=== PATIENT | female | born 1945 | race Caucasian/White ===

== ENCOUNTER 2017-05-21 09:32 | Observation (INO) | payer OTHER ==
[2017-05-21] MEDS ORDERED: PHENAZOPYRIDINE HCL 100 MG TAB PO ONE (11:49)
[2017-05-21] MEDS ORDERED: ceFAZolin 2 GM/DEXTROSE 100 ML IV ONE (11:49)
[2017-05-21] MEDS ORDERED: LR 1,000 ML IV ONE (11:50)
[2017-05-21] MEDS ORDERED: LIDOCAINE 1% 2 ML INJ ID PRN (11:50)
[2017-05-21] MEDS ORDERED: PHENAZOPYRIDINE HCL 200 MG TAB PO ONE (12:15)
[2017-05-21] MEDS ORDERED: BUPIVACAINE/EPI 0.5% 30 ML SDV ONE (12:30)
[2017-05-21] MEDS ORDERED: LIDOCAINE 2% 5 ML SDV ONE (13:16)
[2017-05-21] MEDS ORDERED: ROCURONIUM 50 MG/5 ML VIAL ONE ×2 (13:16→13:59)
[2017-05-21] MEDS ORDERED: KETOROLAC 30 MG/1 ML SDV ONE (13:16)
[2017-05-21] MEDS ORDERED: RANITIDINE 50 MG/2 ML VIAL ONE (13:16)
[2017-05-21] MEDS ORDERED: SUGAMMADEX SODIUM 200 MG/2 ML VIAL IVP ONE (13:16)
[2017-05-21] MEDS ORDERED: ONDANSETRON 4 MG/2 ML VIAL ONE (13:16)
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
[2017-05-21] MEDS ORDERED: PROPOFOL 200 MG/20 ML VIAL ONE (13:59)
[2017-05-21] MEDS ORDERED: PROPOFOL/EMULSION 500 MG/50 ML BOTTLE IV ONE (14:01)
[2017-05-21] MEDS ORDERED: fentaNYL 100 MCG/2 ML INJ ONE ×3 (14:01→15:40)
[2017-05-21] MEDS ORDERED: MIDAZOLAM 2 MG/2 ML VIAL ONE (14:01)
[2017-05-21] MEDS ORDERED: ONDANSETRON 4 MG/2 ML VIAL IVP PRN ×2 (14:46→15:26)
[2017-05-21] MEDS ORDERED: MEPERIDINE 25 MG/ML SYR IVP PRN (14:46)
[2017-05-21] MEDS ORDERED: ALBUTEROL 3 ML DEYVIAL IH PRN (14:46)
[2017-05-21] MEDS ORDERED: NALOXONE HCL 0.4 MG/ML INJ IVP PRN (14:46)
[2017-05-21] MEDS ORDERED: LR 500 ML IV PRN (14:46)
[2017-05-21] MEDS ORDERED: DEXAMETHASONE 4 MG/ML VIAL IVP PRN (14:46)
[2017-05-21] MEDS ORDERED: EPINEPHrine 1 MG/10 ML SYR IVP ONE (14:52)
[2017-05-21] MEDS ORDERED: epHEDrine SULFATE 10 MG/ML SYR ONE (14:52)
[2017-05-21] MEDS ORDERED: HYDROmorphONE/DILAUDID 1 MG/ML INJ IVP PRN (15:26)
[2017-05-21] MEDS ORDERED: HYDROCODONE/APAP 5/325 TAB PO PRN (15:26)
[2017-05-21] MEDS ORDERED: DIAZEPAM 10 MG/2 ML SYR IVP PRN (15:26)
[2017-05-21] MEDS ORDERED: PROMETHAZINE HCL 25 MG/ML INJ IVP PRN (15:26)
[2017-05-21] MEDS ORDERED: LR 1,000 ML IV SCH (15:30)
--- NOTE | 2017-05-21 15:31 | POSTOPPROG ---
Post Op Note Date of Operation: 05/21/17 Surgeon: Jonathan Julian Marble Finisher: Anita Ferrari Anesthesiologist: Jory Anesthesia: GET(General Endotracheal) Pre-op Diagnosis: Uterovaginal prolapse, stress incontinence Post-op Diagnosis: same Procedure: robotic hyst, BSO, sacrocolpopexy, TOT sling, anal sphincteroplasty Findings: normal ureteral function at end of case Inf/Abcess present in the surg proc area at time of surgery?: No EBL: Minimal Complications: None
[2017-05-21] MEDS: fentaNYL 100 MCG/2 ML INJ IVP PRN ×2 (15:42→15:52)
[2017-05-21] MEDS ORDERED: ceFAZolin 2 GM/DEXTROSE 100 ML IV SCH ×2 (19:00→23:30)
[2017-05-21] MEDS ORDERED: LATANOPROST 0.005% 2.5 ML OPHT DROPS EACHEYE SCH (21:00)
[2017-05-21] MEDS: KETOROLAC 15 MG/1 ML SDV IVP SCH (21:34)
[2017-05-21] MEDS: DOCUSATE SODIUM 100 MG CAP PO SCH (23:38)
[2017-05-21] MEDS: ceFAZolin 2 GM/DEXTROSE 100 ML IV SCH (23:38)
[2017-05-22] MEDS: SIMETHICONE 80 MG TAB CHEW PO SCH (00:06)
--- NOTE | 2017-05-22 04:02 | GOP ---
[f rep st] OPERATIVE REPORT DATE OF OPERATION: 05/21/2017 SURGEON: Jonathan Julian MD PRODUCTION ADMINISTRATOR: Anita Ferrari CFA ANESTHESIA: General by Dr. Corley. PREOPERATIVE DIAGNOSIS: 1. Cystocele. 2. Rectocele. 3. Prolapse. 4. Stress urinary incontinence. 5. Fecal incontinence. POSTOPERATIVE DIAGNOSIS: 1. Cystocele. 2. Rectocele. 3. Prolapse. 4. Stress urinary incontinence. 5. Fecal incontinence. PROCEDURE PERFORMED: 1. Robotic-assisted laparoscopic hysterectomy, bilateral salpingo-oophorectomy. 2. Robotic-assisted laparoscopic sacrocervicopexy with mesh. 3. Repair of cystocele and rectocele. 4. Transobturator sling. 5. Cystoscopy. 6. Anal sphincteroplasty. 7. Perineorrhaphy. FINDINGS: SPECIMENS: Uterus, bilateral tubes, and ovaries. ESTIMATED BLOOD LOSS: Scant. DESCRIPTION OF PROCEDURE: The patient was taken to the operating room where she was identified. Gen eral anesthesia was administered and found to be adequate. She was placed in the lithotomy position, prepared and draped in normal sterile fashion. A Hernandez catheter was placed in her bladder. A 1 cm infraumbilical incision was made with a scalpel. The Veress needle with the CO2 gas flowing w as advanced into the peritoneal cavity. The abdomen was then insufflated with carbon dioxide gas. T he 12 mm trocar, followed by the laparoscope were then inserted. The upper abdomen was unremarkable. Two lateral ports were placed on either side under direct visualization. She then was placed in Tr endelenburg position, and the da Carly robot docked on the left side. The instruments were then brou ght into the abdominal cavity under direct visualization. The left round ligament was divided. The anterior leaf of the broad ligament was incised to the bifu rcation of the left common iliac vessels. A window was created posteriorly to skeletonize the infund ibulopelvic vessels. They were then cauterized and transected. The anterior leaf of the broad ligam ent was incised over the left uterine vessels and across the cervix. The bladder was dissected off t he cervix and upper vagina. The left uterine vasculature was then cauterized and transected. The ex act same procedure was performed on the patient's right side. The uterus was then bivalved to aid in removal through the umbilicus. The uterus and the upper 3/4 of the cervix were amputated from the l ower 1/4 of the cervix with the hot leticia. The specimen was then placed in the right upper quadrant for later removal. The Colpo-Probe was placed in the vagina. The bladder was further dissected off the anterior vaginal wall, down to the level of the bladder neck. The rectovaginal space was then entered, and the rectu m dissected off the posterior vaginal wall, down to the level of the perineal body. Measurements wer e then obtained, and the mesh trimmed to size. The sigmoid colon was then retracted laterally. The peritoneum at the sacral promontory was incised, and the fat pad gently dissected off the anterior longitudinal ligament. The mesh was then brought into the abdominal cavity. Three sutures of 4-0 [place]-William were used to attach the distal posterior me sh to the perineal body. Two additional rows of [place]-William sutures were placed posteriorly. Three row s were placed anteriorly to suture down to the level of the bladder neck and laterally to the paravag inal tissue. The Colpo-Probe was then removed. The sacral arm of the mesh was placed over the promo ntory, and the tension adjusted. I then scrubbed back into the case to examine the vagina. The tens ion was further adjusted to resolve the cystocele and rectocele without undue tension on the vagina. Two sutures of 2-0 [place]-William were used to attach the sacral arm of the mesh to the anterior longitudi nal ligament at the level of the upper first sacral vertebral body below the intervertebral disk spac e. The excess mesh was then trimmed. The peritoneum was then closed over the entire mesh. The robo t was then undocked. The specimen was then removed through the umbilicus. The fascia was closed wit h 0 Vicryl, skin with 4-0 Monocryl and surgical adhesive. Attention was then turned to the sling portion of the procedure. A mid urethral incision was made wi th a scalpel. Tunnels were created bilaterally out to the obturator internus muscles. Skin incision s were made over the obturator notches. The Halo trocar was placed through the left skin incision, r edirected around the ischial pubic rami and out the vaginal incision, using a vaginal finger as a aminta de. The lateral sulci were examined and no evidence of vaginal injury had occurred. The sling was t hen attached and brought out along the same course. The exact same procedure was performed on the goyo limon's right side. The sling was then adjusted to allow a small mid urethral gap. The vaginal epit helium was closed with 3-0 Vicryl, skin with 4-0 Monocryl. Cystoscopy was then performed. Both ureters had vigorous jets of urine. There was no evidence of bl adder nor urethral injury seen. No mesh nor suture was seen within the bladder nor urethra. No obvi ous pathology was seen. A transverse incision was then made along the perineal body. The posterior vaginal epithelium was un dermined with the Metzenbaum scissors and incised sagittally. The epithelium was then gently dissect ed off the underlying rectovaginal connective tissue. The connective tissue was then plicated with m ultiple interrupted sutures of 0 Vicryl. The ends of the anal sphincter muscle were then dissected f ree bilaterally. An overlapping sphincteroplasty was performed with interrupted sutures of 0 Vicryl. The bulbous spongiosis muscle and the transverse perineal muscles were likewise plicated in the mid line. The excess epithelium was then trimmed and closed with a running 2-0 Vicryl suture. Vaginal p acking was then placed. Anesthesia was reversed, and the patient taken the PACU awake, in stable con dition. COMPLICATIONS: None. DISPOSITION: Patient stable to PACU. /[id number]/MODL
[2017-05-22] MEDS: KETOROLAC 15 MG/1 ML SDV IVP SCH ×3 (04:19→10:50)
[2017-05-22] MEDS ORDERED: LEVOTHYROXINE 50 MCG TAB PO SCH (06:00)
[2017-05-22 06:29] LABS: HEMATOCRIT 36.4 % (38.0-47.0); HEMOGLOBIN 12.2 g/dL (12.6-16.3)
[2017-05-22] MEDS: ceFAZolin 2 GM/DEXTROSE 100 ML IV SCH (07:32)
[2017-05-22 07:55] VITALS: BP 86/48; PULSE 48; RESP 14; TEMP 98.4; O2SAT 94
[2017-05-22] MEDS: DOCUSATE SODIUM 100 MG CAP PO SCH (10:50)
--- NOTE | 2017-05-22 19:17 | GDS ---
[f rep st] DISCHARGE SUMMARY DISCHARGE DIAGNOSES: 1. Cystocele. 2. Rectocele. 3. Uterine prolapse. 4. Stress urinary incontinence. 5. Fecal incontinence. PROCEDURES: 1. Robotic-assisted total laparoscopic hysterectomy, bilateral salpingo-oophorectomy. 2. Robotic-assisted laparoscopic sacrocervicopexy with mesh. 3. Repair of cystocele and rectocele. 4. Transobturator sling. 5. Cystoscopy. 6. Renal sphincteroplasty. 7. Perineorrhaphy. HISTORY AND HOSPITAL COURSE: The patient is a 72-year-old female with symptomatic prolapse and incon tinence. She was taken to the operating room on 05/21/2017, where she underwent the above-mentioned procedures without complications. Her postoperative course was uneventful. The morning after surgery she was ambulating, voiding, and tolerating a general diet. She was discharged home on postoperative day #1 in good condition. MEDICATIONS: Included ibuprofen and Tylenol for pain. DISCHARGE INSTRUCTIONS: She was to follow up in the office 2 weeks after discharge. /[id number]/MODL
== END 2017-05-22 11:20 | disposition home or self-care (01) ==
LOC: F3E 10:42 → FOB 17:07
PROVIDERS: ADMIT Obstetrics & Gynecology; ATTEND Obstetrics & Gynecology
DX: N81.3 Complete uterovaginal prolapse (principal); N39.3 Stress incontinence (female) (male); R15.2 Fecal urgency; E78.00 Pure hypercholesterolemia, unspecified; E03.9 Hypothyroidism, unspecified
CPT/HCPCS: 46750; 56810; 57288; 57425; 58542; C1763; C1771; J0690; J1885; J2250; J2405; J2704; J2780; J3010

== ENCOUNTER → 2017-09-26 | Outpatient (CLI) | payer OTHER | LOC: FIMAGING 08:52 | PROVIDERS: ATTEND Family Medicine | DX: Z13.820 Encounter for screening for osteoporosis (principal); M81.0 Age-related osteoporosis without current pathological fracture ==

== ENCOUNTER 2018-11-04 11:14 | Emergency (ER) | payer OTHER ==
[2018-11-04] MEDS ORDERED: HYDROCOD/APAP 5/325 PREPACK#6 BTL TAKEHOME ONE (14:30)
[2018-11-04 17:48] VITALS: BP 120/67
--- NOTE | 2018-11-07 17:57 | EDPHY ---
General Time Seen by Provider: 11/04/18 11:20 Narrative: CLINICAL IMPRESSION: Lumbar back strain ASSESSMENT/PLAN: Very pleasant 73-year-old female presents to the emergency department with low back pain x4 days after moving furniture and exercising. Patient has a history of intermittent chronic back pain but states pain has never lasted this long. She also reports a history of rectal incontinence this morning. No associated saddle anesthesia, lower extremity paresthesias, gait intolerance, fever, or recent spinal cord procedure or KARYNA. no reproducible midline pain. Negative straight leg raise test. Patient had an MRI that was read by Radiology as negative for acute herniated disc, cord compression or fracture. She has mild disc bulging at L2-3. Patient was given oral analgesics prescriptions and advised to follow up with PCP and neuro surgery. No reports of fever, vital signs stable, lab work not obtained. Patient is comfortable discharge. Warning signs return to ED sooner outlined and discharge papers. DIFFERENTIAL DX: Differential diagnosis includes but not limited to muscular pain, herniated disc, spine fracture, cauda equina, epidural abscess, infectious causes, intra- abdominal causes, pyelonephritis and urinary tract infection. ED PROCEDURES: See lab and/or imaging results below NON-traumatic Back Pain Pathway--Low/medium concern for Acute Spinal Emergency ( ASE) High Sensitivity Neuro Exam (HSNE) Cervical pain C1-4: sensation back of head/neck no unilateral decrease in sensation. C5: Deltoid (motor) no unilateral weakness or deficit. C6: Biceps (motor) no unilateral weakness or deficit. C7: Extend wrist/fingers no unilateral weakness or deficit C8: Flex fingers no unilateral weakness or deficit Thoracic pain T1: move fingers apart no unilateral deficit. T2-12: trunk sensationno unilateral deficit. Lumbar pain L1: inner thigh sensation no unilateral weakness or deficits. L2: ADduct thigh (cross legs) no unilateral weakness or deficits. L3: Extend knee no unilateral weakness or deficits. L4: Ankle dorsiflexion no unilateral weakness or deficits. L5: Great toe extension no unilateral weakness or deficits. S1: Flex knee no unilateral weakness or deficits. S3-4: bladder/bowel function positive for reported rectal incontinence. NO DEFICITS = Check Red Flags MINOR (1 pt each) Alcohol abuse patient denies DM patient denies Renal failure no history Night pain no 3rd visit in <= 20 days no MAJOR (3 pts each) IVDA no Fever without focus no Recent/current systemic infection no Immunosuppression (physician discretion) no Recent spinal fracture/spinal procedure (ESR is not a good screen for spinal epidural hematoma) no New bladder/bowel incontinence or retention reports of rectal incontinence Total Red Flag score 3 Total Red Flag score <= 3 AND neuro exam is at baseline ---> no MRI is recommended"," >= 4 AND neuro exam in non focal --> check ESR" ESR level: Not ordered, MRI ordered ED COURSE: Discussed MRI results with reading radiologist. No significant cord compression , herniated disc, fracture. Mild disc bulge at L2-3. Degenerative changes noted. Please see radiology report for full details. CHIEF COMPLAINT: Low back pain HPI: Very pleasant 73-year-old female presents to the emergency department with 4 days of low back pain. Patient was moving some furniture and did exercise. She exercises most days of the week. No reported trauma or fall. Patient reports she has never had pain last this long. She is able to ambulate but complains of pain with going from sitting to standing. No reported footdrop or leg weakness. No saddle anesthesia, leg numbness, abdominal pain, flank pain or UTI symptoms. However she did report some rectal incontinence today. She does have a history of repaired rectocele and stated "I felt like I was going to have flatulence but then stool came out". No reports of fever. She is not diabetic. No recent DS IR spinal cord procedure. She does not abuse IV drugs. She is otherwise healthy. PAST MEDICAL HISTORY: None reported See nurse/triage notes for additional history if applicable Pertinent Past Surgical History: None reported Family History: Noncontributory Social History: , here with her REVIEW OF SYSTEMS: All other systems negative Constitutional: No fever, no chills, appetite change. Cardiovascular: No chest pain, no palpitations. Respiratory: No cough, no shortness of breath. Gastrointestinal: No abdominal pain, no vomiting, diarrhea. Genitourinary: No hematuria, dysuria, flank pain, pelvic pain Musculoskeletal: Positive for back pain, joint swelling, joint pain, myalgias. Skin: No rashes, color change. Neurological: No headache, dizziness, weakness. PHYSICAL EXAM: General Appearance: Alert, oriented, appropriate, cooperative, NAD, well hydrated, non-toxic appearing, VSS, no hypoxia. Ambulating without assistance Neck: Supple, nontender, no lymphadenopathy, no midline pain, FROM, no meningismus. Respiratory: There are no retractions, lungs are clear to auscultation. Cardiac: Regular rate and rhythm, no murmurs or gallops. Gastrointestinal: Abdomen is soft, nontender, bowel sounds normal, no masses/ hernia, no rigidity, guarding or focal peritoneal findings. Neurological: Alert and oriented x 3, CN 2-12 grossly intact, normal gait no ataxia, DTR's intact, normal sensation and strength Skin: Warm, dry, no rashes, no nodules on palpation. Musculoskeletal: Reproducible pain to the paraspinal muscles of the lumbar spine left greater than right extending to the sacral iliac region. Negative straight leg raise test. Ambulatory without assistance. Limited heel and toe walking secondary to pain. No footdrop. Patellar DTRs 2+ bilaterally. Intact sensation to bilateral lower extremities. Rectal exam deferred. Patient reports rectal incontinence. Extremities are symmetrical, full range of motion , no tenderness, deformity, swelling, or erythema. Psychiatric: Patient is oriented X 3, there is no agitation. MEDICAL DECISION MAKING: Patient was seen independently. Secondary supervising physician at time of evaluation was Dr Angel. Diagnosis: Lumbar back strain. New, requires workup Summary: See Assessment and Plan for summary of ED visit Independent visualization of images, tracing, or specimens: Yes. Discussed patient with another provider: Radiology Patient Progress: Improved, stable for discharge. - History Smoking Status: Never smoked - Objective Vital Signs: Initial Vital Signs Temperature (C) 36.5 C 11/04/18 11:17 Heart Rate 74 11/04/18 11:17 Respiratory Rate 18 11/04/18 11:17 Blood Pressure 118/67 11/04/18 11:17 O2 Sat (%) 96 11/04/18 11:17 O2 Delivery Mode Room Air Allergies/Adverse Reactions: No Known Allergies Allergy (Verified 04/30/17 14:04) Home Medications: Medication Instructions Recorded Calcium Carbonate [Oyster Shell 1,000 mg PO DAILY 04/25/17 Calcium 500 mg (*)] Cholecalciferol Vit D3 [Vitamin D3 4,000 units PO DAILY 04/25/17 2000 units tab (OTC)] Estrogens,Conjugated [Premarin 1 josemanuel VG Q3D 04/25/17 Vaginal (*)] Herbals/Supplements -Info Only 1 ea PO DAILY 04/25/17 Latanoprost 0.005% [Xalatan 0.005% 1 drops EACHEYE HS 04/25/17 (*)] Levothyroxine [Synthroid 50 mcg 50 mcg PO DAILY06 04/25/17 (*)] Rodeo-3 Fatty Acids [Fish Oil 1000 1,000 mg PO DAILY 04/25/17 mg (*)] Hydrocodone/APAP 5/325 [[place] 1 - 2 tab PO Q4HRS PRN #15 tab 05/22/17 5/325 (*)] Departure - Departure Disposition: Home, Routine, Self-Care Clinical Impression: Lumbar sprain Referrals: Patient,NotPresent [Primary Care Provider] - As per Instructions
== END 2018-11-04 14:50 | disposition home or self-care (01) ==
DX: S39.012A Strain of muscle, fascia and tendon of lower back, initial encounter (principal); X50.0XXA Overexertion from strenuous movement or load, initial encounter; Y93.B9 Activity, other involving muscle strengthening exercises; Y92.9 Unspecified place or not applicable; Y99.9 Unspecified external cause status